=== PATIENT | male | born 1985 | race Hispanic/Latino ===

== ENCOUNTER 2021-12-25 14:55 | Emergency (ER) | payer OTHER ==
[2021-12-25] MEDS ORDERED: predniSONE 20 MG TAB ONE (15:46)
== END 2021-12-25 15:51 ==
LOC: NAV ERS 14:55
DX: L50.0 Allergic urticaria (principal); F17.210 Nicotine dependence, cigarettes, uncomplicated
CPT/HCPCS: 99283; J7512